=== PATIENT | female | born 1970 | race Caucasian/White ===

== ENCOUNTER → 2017-12-07 | Outpatient (CLI) | payer BC ==
[~2017-12-07] MED LIST: GABA100C PO; LORA10TA3 PO; MULT-516 PO; ZOLP10TA PO
== END ==
LOC: STAR 07:56 → MERGE 08:00
PROVIDERS: ATTEND Surgery
DX: Z02.9 Encounter for administrative examinations, unspecified (principal)

== ENCOUNTER 2017-12-18 10:35 | Observation (INO) | payer BC ==
[~2017-12-18] VITALS: Ht 157.5 cm; Wt 72.0 kg
[2017-12-18] MEDS ORDERED: SODIUM BICARBONATE 4.2%, 5ML ONE (11:49)
[2017-12-18] MEDS ORDERED: LIDOCAINE 1%, 20ML ONE (11:49)
[2017-12-18] MEDS ORDERED: LIDOCAINE-MPF 1%, 2ML ONE (12:15)
[2017-12-18] MEDS ORDERED: GABAPENTIN 300 MG CAPSULE PO ONE (12:30)
[2017-12-18] MEDS ORDERED: LIDOCAINE-MPF 1%, 2ML INFIL ONE (12:30)
[2017-12-18] MEDS ORDERED: ACETAMINOPHEN 500 MG TABLET PO ONE (12:30)
[2017-12-18] MEDS ORDERED: SCOPOLAMINE PATCH, 1.5MG PATCH.TD72 TD ONE (12:30)
[2017-12-18] MEDS ORDERED: ONDANSETRON ODT 4 MG PO ONE (12:30)
[2017-12-18] MEDS: LACTATED RINGERS 1,000 ML IV SCH (12:36)
[2017-12-18] MEDS ORDERED: BACITRACIN 50,000 UNIT ONE (15:10)
[2017-12-18] MEDS ORDERED: CEFAZOLIN 1,000 MG ONE ×3 (15:10→15:50)
[2017-12-18] MEDS ORDERED: ROPIvacaine/PF 0.5%, 20 ML ONE (15:10)
[2017-12-18] MEDS ORDERED: GENTAMICIN 80 MG/2 ML ONE (15:10)
[2017-12-18] MEDS ORDERED: MIDAZOLAM 1 MG/ML, 2ML ONE (15:20)
[2017-12-18] MEDS ORDERED: FENTANYL PF 250 MCG/5ML ONE ×2 (15:20→16:57)
[2017-12-18] MEDS ORDERED: EPINEPHRINE 1 MG/ML, 1ML ONE (15:30)
[2017-12-18] MEDS ORDERED: BUPIVACAINE/PF 0.25% ONE (15:30)
[2017-12-18] MEDS ORDERED: ISOSULFAN BLUE 10 MG/ML, 5ML IV ONE (15:30)
[2017-12-18] MEDS ORDERED: DEXAMETHASONE 4 MG/ML, 1ML ONE (15:50)
[2017-12-18] MEDS ORDERED: PROPOFOL 10 MG/ML, 20ML ONE (15:50)
[2017-12-18] MEDS ORDERED: SUCCINYLCHOLINE 20 MG/ML, 10ML ONE (15:50)
[2017-12-18] MEDS ORDERED: ROCURONIUM 10 MG/ML,10ML ONE (15:50)
[2017-12-18] MEDS ORDERED: PROPOFOL 10 MG/ML, 50ML ONE (15:50)
[2017-12-18] MEDS ORDERED: ONDANSETRON 2MG/ML, 2ML ONE (15:50)
[2017-12-18] MEDS ORDERED: OXYcodone 5 MG/5 ML ORAL.SOL UDC PO PRN (17:00)
[2017-12-18] MEDS ORDERED: HYDROcodone/APAP 7.5-325MG/15ML UDC PO PRN (17:00)
[2017-12-18] MEDS ORDERED: morphine SULFATE 10 MG/ML, 1ML IV PRN (17:00)
[2017-12-18] MEDS ORDERED: MEPERIDINE/PF 25MG/0.5ML IVPush PRN (17:00)
[2017-12-18] MEDS ORDERED: FENTANYL PF 100 MCG/2ML IV PRN (17:00)
[2017-12-18] MEDS ORDERED: PROMETHAZINE 25 MG/ML, 1ML IV PRN (17:00)
[2017-12-18] MEDS ORDERED: LORazepam 2 MG/ML, 1ML IVPush PRN (17:00)
[2017-12-18] MEDS ORDERED: ONDANSETRON 2MG/ML, 2ML IVPush PRN ×2 (17:00→23:00)
[2017-12-18] MEDS ORDERED: PROPOFOL 50 ML ONE (18:01)
[2017-12-18] MEDS ORDERED: FENTANYL PF 100 MCG/2ML ONE (20:14)
[2017-12-18] MEDS ORDERED: OXYcodone 5 MG/5 ML ORAL.SOL UDC ONE (20:15)
[2017-12-18] MEDS ORDERED: ONDANSETRON ODT 4 MG ONE (21:00)
[2017-12-18 21:28] VITALS: BP 132/77
[2017-12-18] MEDS ORDERED: DIPHENHYDRAMINE 50 MG/ML, 1ML IVPush PRN (23:00)
[2017-12-18] MEDS ORDERED: MORPHINE SULFATE 4 MG/ML, 1ML IVPush PRN (23:00)
[2017-12-18] MEDS ORDERED: LACTATED RINGERS 1,000 ML IVBOLUS ONE (23:00)
[2017-12-19] MEDS: LACTATED RINGERS 1,000 ML IV SCH (00:10)
[2017-12-19 03:39] VITALS: BP 112/80
[2017-12-19] MEDS ORDERED: OXYcodone/APAP 5/325MG TABLET PO PRN (06:30)
[2017-12-19 07:45] VITALS: BP 100/65
[2017-12-19 12:25] VITALS: BP 118/83
== END 2017-12-19 15:58 | disposition home or self-care (01) ==
LOC: CFH 10:35 → MERGE 15:30 → 4NOR 22:56
PROVIDERS: ADMIT Surgery; ATTEND Surgery
DX: C50.911 Malignant neoplasm of unspecified site of right female breast (principal); Z98.82 Breast implant status
CPT/HCPCS: 19285; 19303; 36415; 38525; 38792; 84703; 88307; 88333; A9541; C1729; C1762; C1789; G0378; J0171; J0330; J0690; J1100; J1580; J2250; J2405; J2704; J3010; J3490; J7120; Q0162; 88341; 88342; J2795; G0461

== ENCOUNTER → 2018-04-03 | Outpatient (CLI) | payer BC | END | disposition home or self-care (01) | LOC: CFH 09:47 | PROVIDERS: ATTEND Registered Nurse | DX: Z30.431 Encounter for routine checking of intrauterine contraceptive device (principal) | CPT/HCPCS: 76830 ==

== ENCOUNTER → 2018-05-25 | Outpatient (CLI) | payer BC | END | disposition home or self-care (01) | LOC: ROC 07:27 | PROVIDERS: ATTEND Radiology Radiation Oncology | DX: C50.511 Malignant neoplasm of lower-outer quadrant of right female breast (principal) | CPT/HCPCS: 99213; G0463 ==

== ENCOUNTER → 2018-07-20 | Outpatient (CLI) | payer BC ==
[~2018-07-20] MED LIST changes: +OMNIPAQUE 350 MG/ML, 100ML BOTTLE ONE
== END | disposition home or self-care (01) ==
LOC: CFH 08:44
PROVIDERS: ATTEND Internal Medicine Hematology & Oncology
DX: N28.1 Cyst of kidney, acquired (principal); N20.0 Calculus of kidney; K57.90 Diverticulosis of intestine, part unspecified, without perforation or abscess without bleeding
CPT/HCPCS: 71260; 74177; Q9967

== ENCOUNTER → 2018-08-30 | Outpatient (CLI) | payer BC ==
[~2018-08-30] MED LIST changes: -OMNIPAQUE 350 MG/ML, 100ML BOTTLE ONE
== END | disposition home or self-care (01) ==
LOC: ROC 07:54
PROVIDERS: ATTEND Radiology Radiation Oncology
DX: Z08 Encounter for follow-up examination after completed treatment for malignant neoplasm (principal); C50.511 Malignant neoplasm of lower-outer quadrant of right female breast
CPT/HCPCS: 99212; G0463

== ENCOUNTER → 2018-08-30 | Outpatient (CLI) | payer BC | END | disposition home or self-care (01) | LOC: CFH 15:39 | PROVIDERS: ATTEND Radiology Radiation Oncology | DX: M25.521 Pain in right elbow (principal) ==

== ENCOUNTER → 2018-10-18 | Outpatient (CLI) | payer BC ==
[~2018-10-18] MED LIST changes: +LORA-247 PO; -LORA10TA3 PO
== END | disposition home or self-care (01) ==
LOC: ROC 07:23
PROVIDERS: ATTEND Radiology Radiation Oncology
DX: Z08 Encounter for follow-up examination after completed treatment for malignant neoplasm (principal); Z90.13 Acquired absence of bilateral breasts and nipples; Z85.3 Personal history of malignant neoplasm of breast
CPT/HCPCS: 99213; G0463

== ENCOUNTER → 2019-09-30 | Outpatient (CLI) | payer BC | END | disposition home or self-care (01) | LOC: ROC 08:14 | PROVIDERS: ATTEND Radiology Radiation Oncology | DX: C50.511 Malignant neoplasm of lower-outer quadrant of right female breast (principal) | CPT/HCPCS: 99212; G0463 ==

== ENCOUNTER 2020-02-17 09:45 | Outpatient (CLI) | payer BC | END 2020-02-17 23:59 | disposition home or self-care (01) | LOC: ROC 09:45 | PROVIDERS: ATTEND Radiology Radiation Oncology | DX: Z08 Encounter for follow-up examination after completed treatment for malignant neoplasm (principal); C50.511 Malignant neoplasm of lower-outer quadrant of right female breast | CPT/HCPCS: 99212; G0463 ==

== ENCOUNTER → 2020-05-21 | Outpatient (CLI) | payer BC | END | disposition home or self-care (01) | LOC: ROC 08:12 | PROVIDERS: ATTEND Radiology Radiation Oncology | DX: Z08 Encounter for follow-up examination after completed treatment for malignant neoplasm (principal); Z85.3 Personal history of malignant neoplasm of breast | CPT/HCPCS: 99212; G0463 ==

== ENCOUNTER → 2021-03-10 | Outpatient (CLI) | payer BC | END | disposition home or self-care (01) | LOC: CFH 14:06 | PROVIDERS: ATTEND Nurse Practitioner | DX: C50.811 Malignant neoplasm of overlapping sites of right female breast (principal); R21 Rash and other nonspecific skin eruption; D70.1 Agranulocytosis secondary to cancer chemotherapy; Z51.11 Encounter for antineoplastic chemotherapy; G62.2 Polyneuropathy due to other toxic agents; F33.8 Other recurrent depressive disorders | CPT/HCPCS: 76642 ==